=== PATIENT | male | born 2000 | race Caucasian/White ===

== ENCOUNTER 2020-12-15 22:24 | Emergency (ER) | payer BC, MEDICAID, SELFPAY ==
--- NOTE | 2020-12-15 | XR_ITS ---
EXAMINATION: XR HAND, RIGHT CLINICAL INFORMATION: Punched. Laceration. Pain. COMPARISON: None TECHNIQUE: PA, lateral, and oblique views of the right hand. FINDINGS: The bones and soft tissues are normal. No fracture. Alignment is anatomic. Joint spaces are maintained. No erosions or soft tissue calcifications. XR/XR hand RT min 3V IMPRESSION: Normal right hand.
[2020-12-15 22:51] VITALS: BP 159/102; PULSE 72; RESP 18; TEMP 36.5; O2SAT 99; BMI 26.6
[2020-12-16] MEDS: Acetaminophen 325 MG TABLET 975 MG PO (00:55)
[2020-12-16] MEDS: Ketorolac Tromethamine 15 MG/ML VIAL IM (00:56)
[2020-12-16] MEDS: Lidocaine HCl 2 % MPF 5 ML VIAL INFILTRATI (00:57)
--- NOTE | 2020-12-16 01:26 | ED.EXTPRO ---
HPI - Extremity Problem General Chief complaint: Extremity Injury, Upper Stated complaint: Hand injury Time Seen by Provider: 12/15/20 23:11 Source: patient Mode of arrival: ambulatory History of Present Illness HPI Narrative: This is a 20-year-old male who is not up-to-date on his tetanus vaccine and punched a TV this evening secondary to frustration and is now presenting with laceration. Related Data Allergies Allergy/AdvReac Type Severity Reaction Status Date / Time fluoxetine [From Prozac] AdvReac Unknown Verified 12/15/20 23:11 Review of Systems Review of Systems: Pertinent positives and negatives as stated in HPI 10 point review of systems is otherwise negative. PMFSH Past Medical History Source: nursing notes reviewed Medical History ADHD Anxiety ASD (atrial septal defect) Asthma Kidney stone No known health problems PTSD (post-traumatic stress disorder) Social History Social History Smoking Status: Never smoker Use of substances other than those prescribed or required for medical reasons: No Advance Directives: No Physical Exam Vital Signs: Vital Signs: Last Vital Signs Temp 97.7 F 12/15/20 22:51 Pulse 72 12/15/20 22:51 Resp 18 12/15/20 22:51 BP 159/102 H 12/15/20 22:51 Pulse Ox 99 12/15/20 22:51 Body Mass Index 26.6 VITAL SIGNS: Reviewed. GENERAL: Well developed, well nourished, in no acute distress. OROPHARYNX: no oral lesions noted, posterior pharynx clear NECK: Supple, no adenopathy LUNGS: Normal breath sounds. No adventitious sounds or accessory muscle use. SpO2<99> CARDIOVASCULAR: Regular rate and rhythm without noted murmurs ABDOMEN: Soft, non-tender, non-distended with bowel sounds. RIGHT HAND: THERE IS A SEMILUNAR LACERATION WITH JAGGED EDGES IN BETWEEN THE 1ST AND 2ND METACARPALS, HEMOSTATIC, FULL RANGE OF MOTION INTACT, CAPILLARY REFILL LESS THAN 3 SECONDS NEUROLOGIC: Alert and oriented x 4. Course Course Course Narrative: This is a 20-year-old male with history and clinical presentation consistent with laceration to the dorsum of the right hand secondary to striking a television screen and review of x-rays is negative for any radiopaque foreign bodies. The laceration was repaired without complications and patient was instructed to follow up with his primary care provider in 5 days for the removal of the sutures. Patient also received Tdap at this time. Procedures Laceration Laceration 1: Site: hand Side (If applicable): right Size (cm): 2 Description: stellate, irregular and clean Depth: simple, single layer Local Anesthetic: lidocaine 2% Amount of anesthesia used (mL): 2 Pre-repair: wound explored, irrigated extensively and deep structures intact Skin layer closed with: nylon Size (cm): 4-0 Number of sutures: 5 Technique: simple, interrupted Discharge Plan Discharge Clinical Impression: Laceration Patient Disposition: Home, Self-Care Instructions: Laceration (ED), Care For Your Stitches (ED) Additional Instructions: 1. In 5 days have your primary care provider remove the sutures. 2. You may cleanse the area with soap and water in 24 hours and reapply antibiotic ointment. 3. Recommend using [id number] Tylenol or ibuprofen as needed for pain control. Return to the emergency department if you develop any acute redness, swelling, fevers, chills. Referrals: Rosalio Judge MD [Primary Care Provider] - 2 days (Suture removal in 5 days to right hand)
== END 2020-12-16 01:45 | disposition home or self-care (01) ==
PROVIDERS: Emergency Provider Student in an Organized Health Care Education/Training Program; PCP Family Medicine
DX: S61.411A Laceration without foreign body of right hand, initial encounter (principal); W22.8XXA Striking against or struck by other objects, initial encounter; Y93.89 Activity, other specified; Y92.019 Unspecified place in single-family (private) house as the place of occurrence of the external cause; Y99.9 Unspecified external cause status
CPT/HCPCS: 12001; 73130; 90471; 90715; 96372; 99284; J1885